=== PATIENT | male | born 1960 | race Caucasian/White ===

== ENCOUNTER → 2016-12-12 | Outpatient (CLI) | payer MEDICARE ==
[2016-12-12 10:19] LABS: HEMOGLOBIN 14.8 gm/dl (14.0-17.5); RED BLOOD COUNT 5.11 M/UL (4.20-5.50); WHITE BLOOD COUNT 6.6 K/UL (4.5-11.0)
[2016-12-12 10:41] LABS: BUN/CREATININE RATIO 21 (0-10)
== END ==
LOC: LAB 09:30
PROVIDERS: Nurse Practitioner
DX: Z12.5 Encounter for screening for malignant neoplasm of prostate (principal); E78.5 Hyperlipidemia, unspecified; I10 Essential (primary) hypertension
CPT/HCPCS: 36415; 80053; 80061; 84436; 84443; 84480; 85025; 86812; G0103

== ENCOUNTER → 2020-09-26 | Outpatient (CLI) | payer MEDICARE, OTHER ==
[~2020-09-26] MED LIST: ASPIRIN EC81 MG PO; ATORVASTATIN CA20 MG PO; LISINOPRIL10 MG PO; NORVASC 5 MG TAB5 MG PO; ZESTRIL/PRINIVI10 MG PO
[2020-09-26 09:37] LABS: HEMOGLOBIN 14.7 gm/dl (14.0-17.5); RED BLOOD COUNT 4.97 M/UL (4.20-5.50); WHITE BLOOD COUNT 7.9 K/UL (4.5-11.0)
[2020-09-26 09:59] LABS: BUN/CREATININE RATIO 26 (0-10)
[2020-09-27 08:14] LABS: THYROXINE (T4) 5.4 ug/dL (4.5-12.0); VITAMIN D, 25-HYDROXY 36.4 ng/mL (30.0-100.0)
== END ==
LOC: LAB 09:10
PROVIDERS: Nurse Practitioner
DX: I10 Essential (primary) hypertension (principal); M25.50 Pain in unspecified joint; E55.9 Vitamin D deficiency, unspecified; E78.5 Hyperlipidemia, unspecified
CPT/HCPCS: 36415; 80053; 80061; 84436; 84443; 84480; 85025; 85652; 86140

== ENCOUNTER → 2021-01-06 | Outpatient (CLI) | payer MEDICARE, OTHER ==
[2021-01-06 09:38] LABS: HEMOGLOBIN 14.4 gm/dl (14.0-17.5); RED BLOOD COUNT 4.76 M/UL (4.20-5.50)
[2021-01-06 10:11] LABS: BUN/CREATININE RATIO 17 (0-10)
== END ==
LOC: LAB 08:32
PROVIDERS: Nurse Practitioner
DX: I10 Essential (primary) hypertension (principal); E78.5 Hyperlipidemia, unspecified; E55.9 Vitamin D deficiency, unspecified; R73.01 Impaired fasting glucose
CPT/HCPCS: 36415; 80053; 80061; 81001; 83036; 85025

== ENCOUNTER → 2021-08-04 | Outpatient (CLI) | payer MEDICARE ==
[2021-08-04 08:45] LABS: HEMOGLOBIN 15.2 gm/dl (14.0-17.5); RED BLOOD COUNT 4.99 M/UL (4.20-5.50); WHITE BLOOD COUNT 8.7 K/UL (4.5-11.0)
[2021-08-04 09:04] LABS: BUN/CREATININE RATIO 24 (0-10)
[2021-08-05 07:08] LABS: THYROXINE (T4) 5.4 ug/dL (4.5-12.0); VITAMIN D, 25-HYDROXY 50.5 ng/mL (30.0-100.0)
== END ==
LOC: LAB 08:15
PROVIDERS: Nurse Practitioner
DX: I10 Essential (primary) hypertension (principal); E78.5 Hyperlipidemia, unspecified; R53.83 Other fatigue; Z12.5 Encounter for screening for malignant neoplasm of prostate
CPT/HCPCS: 36415; 80053; 80061; 81001; 84436; 84443; 84480; 85025; G0103

== ENCOUNTER → 2022-03-19 | Outpatient (CLI) | payer MEDICARE ==
[2022-03-19 09:00] LABS: HEMOGLOBIN 15.3 gm/dl (14.0-17.5); RED BLOOD COUNT 5.03 M/UL (4.20-5.50); WHITE BLOOD COUNT 8.6 K/UL (4.5-11.0)
[2022-03-19 09:35] LABS: BUN/CREATININE RATIO 24 (0-10)
[2022-03-20 08:15] LABS: VITAMIN D, 25-HYDROXY 53.6 ng/mL (30.0-100.0)
== END ==
LOC: LAB 08:15
PROVIDERS: Nurse Practitioner
DX: I10 Essential (primary) hypertension (principal); E78.5 Hyperlipidemia, unspecified; R07.9 Chest pain, unspecified; R06.02 Shortness of breath; E55.9 Vitamin D deficiency, unspecified; R53.83 Other fatigue
CPT/HCPCS: 36415; 80053; 81001; 83036; 84436; 84443; 84480; 85025; 85652; 86140